=== PATIENT | female | born 1990 | race Caucasian/White ===

== ENCOUNTER 2018-03-26 02:07 | Emergency (ER) | payer OTHER ==
[~2018-03-26] VITALS: Ht 175.3 cm; Wt 83.9 kg
[2018-03-26 02:30] VITALS: BP 149/81
== END 2018-03-26 03:06 | disposition home or self-care (01) ==
LOC: ER 02:07
DX: S09.90XA Unspecified injury of head, initial encounter (principal); V48.6XXA Car passenger injured in noncollision transport accident in traffic accident, initial encounter; Y93.89 Activity, other specified; Y92.89 Other specified places as the place of occurrence of the external cause; Y99.8 Other external cause status